=== PATIENT | female | born 1980 | race Caucasian/White ===

== ENCOUNTER → 2017-03-15 | Outpatient (REF) | payer OTHER ==
[2017-03-15 15:49] LABS: CONTROL LINE UCG INT CTR LINE PRESENT
== END ==
LOC: M LAB REF 15:39
PROVIDERS: ATTEND Physician Assistant
DX: N76.0 Acute vaginitis (principal)

== ENCOUNTER → 2017-05-12 | Outpatient (REF) | payer OTHER ==
[2017-05-12 18:31] LABS: ANION GAP 7 MEQ/L (8-16); BLOOD UREA NITROGEN 8 MG/DL (7-18); CALCIUM LEVEL 9.2 MG/DL (8.5-10.1); CARBON DIOXIDE LEVEL 28 MEQ/L (21-32); CHLORIDE LEVEL 105 MEQ/L (98-107); CREATININE FOR GFR 0.87 MG/DL (0.55-1.02); GLOMERULAR FILTRATION RATE > 60.0 (>60); GLUCOSE, FASTING 98 MG/DL (70-105); SODIUM LEVEL 140 MEQ/L (136-145)
== END ==
LOC: M LAB REF 16:52
PROVIDERS: ATTEND Physician Assistant Medical
DX: N18.9 Chronic kidney disease, unspecified (principal)

== ENCOUNTER → 2017-06-01 | Outpatient (REF) | payer OTHER ==
[2017-06-01 17:05] LABS: ANION GAP 6 MEQ/L (8-16); BLOOD UREA NITROGEN 9 MG/DL (7-18); CALCIUM LEVEL 9.1 MG/DL (8.5-10.1); CARBON DIOXIDE LEVEL 29 MEQ/L (21-32); CHLORIDE LEVEL 103 MEQ/L (98-107); CREATININE FOR GFR 0.66 MG/DL (0.55-1.02); GLOMERULAR FILTRATION RATE > 60.0 (>60); GLUCOSE, FASTING 94 MG/DL (70-105); POTASSIUM SERUM 4.9 MEQ/L (3.5-5.1); SODIUM LEVEL 138 MEQ/L (136-145)
== END ==
LOC: M LAB REF 16:50
PROVIDERS: ATTEND Physician Assistant Medical
DX: R10.9 Unspecified abdominal pain (principal)

== ENCOUNTER → 2017-06-16 | Outpatient (REF) | payer OTHER ==
[2017-06-16 12:50] LABS: APPEARANCE, URINE CLEAR (CLEAR); BACTERIA, URINE AUTO NEGATIVE (NEGATIVE); BILIRUBIN, URINE AUTO NEGATIVE (NEGATIVE); BLOOD, URINE BLOOD NEGATIVE (NEGATIVE); COLOR, URINE YELLOW (YELLOW); GLUCOSE, URINE (UA) AUTO NEGATIVE (NEGATIVE); KETONE, URINE AUTO NEGATIVE (NEGATIVE); LEUKOCYTE ESTERASE, URINE AUTO TRACE (NEGATIVE); MUCUS, URINE SMALL (NEGATIVE); NITRITE, URINE AUTO NEGATIVE (NEGATIVE); PROTEIN, URINE AUTO NEGATIVE (NEGATIVE); RBC, URINE AUTO 1 /HPF (0-3); SQUAMOUS EPITHELIAL CELL UR AU 2 /HPF (0-6); WBC, URINE AUTO 1 /HPF (0-3)
[2017-06-16 14:15] LABS: CHLAMYDIA DNA AMPLIFICATION NEGATIVE (NEGATIVE); GC DNA AMPLIFICATION NEGATIVE (NEGATIVE)
== END ==
LOC: M LAB REF 12:05
DX: R30.0 Dysuria (principal); R10.9 Unspecified abdominal pain

== ENCOUNTER → 2017-07-05 | Outpatient (REF) | payer OTHER | LOC: M LAB REF 15:17 | DX: J11.1 Influenza due to unidentified influenza virus with other respiratory manifestations (principal) ==

== ENCOUNTER → 2017-10-04 | Outpatient (REF) | payer OTHER ==
[2017-10-04 20:27] LABS: BASO # 0.1 10^3/uL (0.0-0.2); BASO % 0.6 % (0.0-1.0); EOS # 0.2 10^3/uL (0.0-0.50); EOS % 1.8 % (0.0-3.0); HEMATOCRIT 45.4 % (36.0-47.0); HEMOGLOBIN 15.3 g/dl (12.0-15.5); IMMATURE GRANULOCYTE % 0.3 % (0-3.0); LYMPH # 2.7 10^3/uL (1.5-4.5); LYMPH % 27.4 % (24.0-44.0); MEAN CORPUSCULAR HEMOGLOBIN 33.8 pg (27.0-33.0); MEAN CORPUSCULAR HGB CONC 33.7 g/dl (32.0-36.5); MEAN CORPUSCULAR VOLUME 100.4 fl (80.0-96.0); MONO # 0.7 10^3/uL (0.0-0.8); MONO % 6.7 % (0.0-5.0); NEUTROPHILS # 6.3 10^3/uL (1.8-7.7); NEUTROPHILS % 63.2 % (36.0-66.0); PLATELET COUNT, AUTOMATED 373 10^3/uL (150-450); RED BLOOD COUNT 4.52 10^6/uL (4.00-5.40); RED CELL DISTRIBUTION WIDTH 14.1 % (11.5-14.5); WHITE BLOOD COUNT 9.9 10^3/uL (4.0-10.0)
[2017-10-04 20:54] LABS: ALBUMIN 3.7 GM/DL (3.2-5.2); ALBUMIN/GLOBULIN RATIO 1.09 (1.00-1.93); ALKALINE PHOSPHATASE 121 U/L (45-117); ALT/SGPT 25 U/L (12-78); ANION GAP 6 MEQ/L (8-16); AST/SGOT 20 U/L (7-37); BILIRUBIN,TOTAL 0.4 MG/DL (0.2-1.0); BLOOD UREA NITROGEN 8 MG/DL (7-18); CALCIUM LEVEL 9.4 MG/DL (8.5-10.1); CARBON DIOXIDE LEVEL 28 MEQ/L (21-32); CHLORIDE LEVEL 106 MEQ/L (98-107); GLOMERULAR FILTRATION RATE > 60.0 (>60); GLUCOSE, FASTING 86 MG/DL (70-100); POTASSIUM SERUM 4.9 MEQ/L (3.5-5.1); SODIUM LEVEL 140 MEQ/L (136-145); TOTAL PROTEIN 7.1 GM/DL (6.4-8.2)
== END ==
LOC: M SFHCLERA 16:54
DX: M54.5 Low back pain (principal); Z87.448 Personal history of other diseases of urinary system

== ENCOUNTER → 2018-03-01 | Outpatient (REF) | payer OTHER | LOC: M SFHCLERA 10:02 | DX: R50.9 Fever, unspecified (principal) ==

== ENCOUNTER → 2018-04-20 | Outpatient (REF) | payer OTHER | LOC: M SFHCLERA 14:35 | DX: J02.9 Acute pharyngitis, unspecified (principal) ==

== ENCOUNTER → 2018-08-23 | Outpatient (REF) | payer OTHER ==
[2018-08-23 16:40] LABS: INFLUENZA A AMPLIFICATION NEGATIVE (NEGATIVE); INFLUENZA B AMPLIFICATION NEGATIVE (NEGATIVE)
== END ==
LOC: M LAB REF 15:45
PROVIDERS: ATTEND Physician Assistant Medical
DX: J11.1 Influenza due to unidentified influenza virus with other respiratory manifestations (principal)

== ENCOUNTER 2019-06-19 16:19 | Inpatient (IN) | payer MEDICAID, OTHER ==
[~2019-06-19] VITALS: Ht 167.6 cm; Wt 72.9 kg
[2019-06-19 17:47] LABS: HEMATOCRIT 48.4 % (36.0-47.0); HEMOGLOBIN 15.9 g/dl (12.0-15.5); MEAN CORPUSCULAR HEMOGLOBIN 32.1 pg (27.0-33.0); MEAN CORPUSCULAR HGB CONC 32.9 g/dl (32.0-36.5); MEAN CORPUSCULAR VOLUME 97.8 fl (80.0-96.0); PLATELET COUNT, AUTOMATED 324 10^3/uL (150-450); RED BLOOD COUNT 4.95 10^6/uL (4.00-5.40); WHITE BLOOD COUNT 7.6 10^3/uL (4.0-10.0)
[2019-06-19 18:16] LABS: ACETAMINOPHEN LEVEL < 2.0 UG/ML (10.0-30.0); ALBUMIN 3.6 GM/DL (3.2-5.2); ALT/SGPT 20 U/L (12-78); BILIRUBIN,DIRECT < 0.1 MG/DL (0.0-0.2); BILIRUBIN,TOTAL 0.1 MG/DL (0.2-1.0); BLOOD UREA NITROGEN 5 MG/DL (7-18); CALCIUM LEVEL 9.2 MG/DL (8.5-10.1); CARBON DIOXIDE LEVEL 29 MEQ/L (21-32); CHLORIDE LEVEL 109 MEQ/L (98-107); CREATININE FOR GFR 0.62 MG/DL (0.55-1.30); ETHYL ALCOHOL (ETHANOL) 0.125 % (0.000-0.010); GLOMERULAR FILTRATION RATE > 60.0 (>60); GLUCOSE, FASTING 87 MG/DL (70-100); POTASSIUM SERUM 4.3 MEQ/L (3.5-5.1); SALICYLATE LEVEL 2.4 MG/DL (5.0-30.0); SODIUM LEVEL 144 MEQ/L (136-145)
[2019-06-19 18:21] LABS: AMPHETAMINES LEVEL URINE NEGATIVE (NEGATIVE); BARBITURATES URINE POSITIVE (NEGATIVE); BENZODIAZEPINES URINE NEGATIVE (NEGATIVE); CANNABINOIDS URINE NEGATIVE (NEGATIVE); COCAINE METABOLITE URINE POSITIVE (NEGATIVE); METHADONE URINE NEGATIVE (NEGATIVE); OPIATES URINE NEGATIVE (NEGATIVE); PHENCYCLIDINE URINE NEGATIVE (NEGATIVE)
[2019-06-19] MEDS ORDERED: ACETAMINOPHEN TAB 650MG DOSE (2X325MG) PO ONE (19:45)
[2019-06-19 21:41] LABS: HCG, SERUM QUALITATIVE NEGATIVE (NEGATIVE)
[2019-06-20] MEDS ORDERED: ACETAMINOPHEN TAB 650MG DOSE (2X325MG) PO ONE ×2 (06:30→13:30)
[2019-06-20] MEDS ORDERED: NICOTINE 21MG/24HR 1 EA TRANSDERMAL TD ONE (06:45)
--- NOTE | 2019-06-20 08:06 | ECGEPIP ---
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
[2019-06-20] MEDS ORDERED: MAALOX 30 ML SUSP *UDC PO PRN (17:45)
[2019-06-20] MEDS ORDERED: MOM 30ML SUSPENSION UDC PO PRN (17:45)
[2019-06-20] MEDS ORDERED: LORazepam 2 MG TAB PO PRN (17:45)
[2019-06-20 18:23] VITALS: BP 144/86
[2019-06-20] MEDS: THIAMINE 100 MG TAB PO SCH (19:33)
[2019-06-20] MEDS: traZODone 50 MG TAB PO PRN (20:34)
[2019-06-20] MEDS: ACETAMINOPHEN TAB 650MG DOSE (2X325MG) PO PRN (20:35)
[2019-06-21 02:09] VITALS: BP 135/79
[2019-06-21] MEDS ORDERED: ONDANSETRON 4 MG TAB (S0181) PO ONE (02:30)
[2019-06-21] MEDS: ACETAMINOPHEN TAB 650MG DOSE (2X325MG) PO PRN ×2 (02:38→10:09)
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
[2019-06-21] MEDS ORDERED: IBUPROFEN 800 MG TAB PO ONE (04:00)
[2019-06-21 08:00] VITALS: BP 135/79
[2019-06-21] MEDS: MULTIVITAMINS/MINERALS THERAP 1 TAB PO SCH (09:20)
[2019-06-21] MEDS: THIAMINE 100 MG TAB PO SCH ×2 (09:20→21:32)
[2019-06-21] MEDS: FOLIC ACID 1 MG TAB PO SCH (09:20)
[2019-06-21] MEDS: NICOTINE 21MG/24HR 1 EA TRANSDERMAL TD SCH (10:05)
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
[2019-06-21] MEDS: IBUPROFEN 400 MG TAB PO PRN (13:55)
[2019-06-21 15:42] VITALS: BP 115/75
--- NOTE | 2019-06-21 16:54 | REP ---
INDICATION: Recurrent headaches PROCEDURE: CT head without contrast COMPARISON STUDIES: No prior FINDINGS: No acute bleed or acute large vessel territorial infarct. Ventricles, cisterns and sulci within normal limits. No mass effect or midline shift. No abnormal fluid collections. Paranasal sinuses and mastoid air cells are clear. CONCLUSION: No acute findings. Normal examination. Electronically Signed by Angel Curtis MD 06/21/2019 04:46 P
[2019-06-21] MEDS ORDERED: SERTRALINE HCL 25 MG TABLET PO ONE (17:15)
[2019-06-21 17:20] VITALS: BP 115/75
[2019-06-21] MEDS ORDERED: BACITRACIN OINT 30GM TOP PRN (18:00)
[2019-06-21] MEDS: FIORICET TAB PO PRN (21:33)
[2019-06-21] MEDS: traZODone 50 MG TAB PO PRN (22:47)
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
[2019-06-22 07:55] VITALS: BP 97/59
[2019-06-22] MEDS: NICOTINE 21MG/24HR 1 EA TRANSDERMAL TD SCH (08:55)
[2019-06-22] MEDS: THIAMINE 100 MG TAB PO SCH ×2 (08:55→21:27)
[2019-06-22] MEDS: SERTRALINE HCL 25 MG TABLET PO SCH (08:55)
[2019-06-22] MEDS: MULTIVITAMINS/MINERALS THERAP 1 TAB PO SCH (08:55)
[2019-06-22] MEDS: FOLIC ACID 1 MG TAB PO SCH (08:55)
[2019-06-22] MEDS: FIORICET TAB PO PRN ×3 (09:00→21:28)
--- NOTE | 2019-06-22 10:19 | IPNPDOC ---
Subjective Date Seen The patient was seen on 06/22/19. Subjective Chief Complaint/HPI Patient examined at home with Augmentin at bedside. Headache is much better. He denies any new complaints General: Denies: ROS Unobtainable, Chills, Night Sweats, Fatigue, Malaise, Normal Appetite, Other Symptoms Constitutional: Denies: Chills, Fever, Malaise, Night Sweats, Weakness, Fatigue, Weight Loss, Lethargy, Other Pulmonary: Denies: Dyspnea, Cough, Pleuritic Chest Pain, Other Symptoms Cardiovascular: Denies: Chest Pain, Palpitations, Orthopnea, Paroxysmal Noc. Dyspnea, Edema, Lt Headedness, Other Symptoms Gastrointestinal: Denies: Nausea, Vomiting, Abdominal Pain, Diarrhea, Constipation, Melena, Hematochezia, Other Symptoms Genitourinary: Denies: Dysuria, Frequency, Incontinence, Hematuria, Retention, Other Symptoms Musculoskeletal: Denies: Neck Pain, Back Pain, Shoulder Pain, Arm Pain, Hand Pain, Leg Pain, Foot Pain, Joint Pain, Muscle Pain, Spasms, Other Symptoms Neurological: Denies: Weakness, Numbness, Incoordination, Change in speech, Confusion, Seizures, Other Symptoms Psych: Denies: Mood Normal, Anxiety, Depression, Memory Issues, Thoughts of Self Harm, Anger, Thoughts of Harming Other, Other Psych Objective Physical Examination General Exam: Positive: Alert, Cooperative Eye Exam: Positive: PERRLA, Conjunctiva & lids normal ENT Exam: Positive: Atraumatic Neck Exam: Positive: Supple Chest Exam: Positive: Clear to auscultation, Normal air movement Heart Exam: Positive: Rate Normal, Normal S1, Normal S2 Abdomen Exam: Positive: Soft Extremity Exam: Positive: Normal pulses Skin Exam: Positive: Nl turgor and temperature Assessment /Plan Problems (1) Headache Status: Acute Problem Text: CT of the head essentially negative Headache, most likely secondary to polysubstance abuse and withdrawal Continue Fioricet when necessary for headache For further intervention at this time (2) Polysubstance abuse Status: Acute Problem Text: Counseling as per psychiatry (3) Depression with suicidal ideation Status: Acute Problem Text: Further management as per psychiatry Plan/VTE VTE Prophylaxis Ordered?: No VS, I&O, 24H, Fishbone Vital Signs/I&O Vital Signs Date Time Temp Pulse Resp B/P (MAP) Pulse Ox O2 Delivery O2 Flow Rate FiO2 1/10/20 09:32 16 06/22/19 09:00 99 102/68 97 06/22/19 07:55 97.3 06/20/19 18:23 Room Air RIGO JAY MD Jun 22, 2019 10:19
[2019-06-22 15:48] VITALS: BP 113/69
[2019-06-22] MEDS: traZODone 50 MG TAB PO PRN (21:27)
[2019-06-23 06:29] VITALS: BP 110/68
[2019-06-23] MEDS: SERTRALINE HCL 25 MG TABLET PO SCH (08:12)
[2019-06-23] MEDS: FOLIC ACID 1 MG TAB PO SCH (08:12)
[2019-06-23] MEDS: THIAMINE 100 MG TAB PO SCH (08:12)
[2019-06-23] MEDS: NICOTINE 21MG/24HR 1 EA TRANSDERMAL TD SCH (08:12)
[2019-06-23] MEDS: MULTIVITAMINS/MINERALS THERAP 1 TAB PO SCH (08:12)
[2019-06-23] MEDS: FIORICET TAB PO PRN ×3 (08:16→21:34)
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
[2019-06-23 10:00] VITALS: BP 110/68
[2019-06-23] MEDS ORDERED: SERTRALINE HCL 25 MG TABLET PO ONE (10:00)
[2019-06-23 16:38] VITALS: BP 106/71
[2019-06-23] MEDS: traZODone 50 MG TAB PO PRN (21:34)
[2019-06-24 06:38] VITALS: BP 109/51
[2019-06-24] MEDS: SERTRALINE HCL 50 MG TAB PO SCH (08:49)
[2019-06-24] MEDS: FOLIC ACID 1 MG TAB PO SCH (08:49)
[2019-06-24] MEDS: MULTIVITAMINS/MINERALS THERAP 1 TAB PO SCH (08:49)
[2019-06-24] MEDS: NICOTINE 21MG/24HR 1 EA TRANSDERMAL TD SCH (08:49)
[2019-06-24] MEDS: IBUPROFEN 400 MG TAB PO PRN (08:50)
[2019-06-24 10:00] VITALS: BP 109/51
[2019-06-24] MEDS: FIORICET TAB PO PRN ×2 (16:04→22:07)
[2019-06-24 16:16] VITALS: BP 130/68
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
[2019-06-24] MEDS: hydrOXYzine 50 MG TAB PO PRN ×2 (18:22→22:07)
[2019-06-24 21:01] VITALS: BP 130/68
[2019-06-24] MEDS: traZODone 50 MG TAB PO PRN (22:07)
[2019-06-25 06:38] VITALS: BP 120/60
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
[2019-06-25] MEDS: FIORICET TAB PO PRN ×2 (09:38→18:48)
[2019-06-25] MEDS: SERTRALINE HCL 50 MG TAB PO SCH (09:38)
[2019-06-25] MEDS: FOLIC ACID 1 MG TAB PO SCH (09:38)
[2019-06-25] MEDS: MULTIVITAMINS/MINERALS THERAP 1 TAB PO SCH (09:38)
[2019-06-25] MEDS: NICOTINE 21MG/24HR 1 EA TRANSDERMAL TD SCH (09:39)
[2019-06-25] MEDS: hydrOXYzine 50 MG TAB PO PRN ×2 (09:41→22:40)
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
[2019-06-25] MEDS ORDERED: OXAZEPAM 10 MG CAP PO ONE (11:00)
[2019-06-25 16:57] VITALS: BP 117/78
[2019-06-25] MEDS: OXAZEPAM 10 MG CAP PO PRN (18:44)
[2019-06-25 21:27] VITALS: BP 117/78
[2019-06-25] MEDS: traZODone 50 MG TAB PO PRN (22:36)
[2019-06-25] MEDS: IBUPROFEN 400 MG TAB PO PRN (22:40)
[2019-06-26 06:56] VITALS: BP 90/51
[2019-06-26 06:57] VITALS: BP 90/51
[2019-06-26] MEDS: hydrOXYzine 50 MG TAB PO PRN ×2 (08:39→20:45)
[2019-06-26] MEDS: FOLIC ACID 1 MG TAB PO SCH (08:39)
[2019-06-26] MEDS: MULTIVITAMINS/MINERALS THERAP 1 TAB PO SCH (08:39)
[2019-06-26] MEDS: FIORICET TAB PO PRN ×2 (08:39→20:51)
[2019-06-26] MEDS: NICOTINE 21MG/24HR 1 EA TRANSDERMAL TD SCH (08:42)
[2019-06-26] MEDS ORDERED: SERTRALINE HCL 25 MG TABLET PO SCH (09:00)
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
[2019-06-26 11:50] VITALS: BP 135/85
[2019-06-26] MEDS: IBUPROFEN 400 MG TAB PO PRN ×2 (11:59→22:42)
[2019-06-26 15:43] VITALS: BP 109/63
[2019-06-26 15:44] VITALS: BP 109/63
[2019-06-26] MEDS: OXAZEPAM 10 MG CAP PO PRN (20:47)
[2019-06-26] MEDS: traZODone 50 MG TAB PO PRN (22:42)
[2019-06-27 06:35] VITALS: BP 96/53
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
[2019-06-27] MEDS ORDERED: SERTRALINE HCL 50 MG TAB PO SCH (09:00)
[2019-06-27] MEDS: hydrOXYzine 50 MG TAB PO PRN ×2 (09:24→13:42)
[2019-06-27] MEDS: NICOTINE 21MG/24HR 1 EA TRANSDERMAL TD SCH (09:24)
[2019-06-27] MEDS: OXAZEPAM 10 MG CAP PO PRN (09:24)
[2019-06-27] MEDS: FIORICET TAB PO PRN (09:25)
[2019-06-27] MEDS ORDERED: SERT50TA29 PO (09:46)
[2019-06-27] MEDS ORDERED: NICO21PAT TD (09:46)
[2019-06-27] MEDS: IBUPROFEN 400 MG TAB PO PRN (13:43)
[2019-06-27] MEDS ORDERED: SERT25TA85 PO (13:50)
[2019-06-27] MEDS ORDERED: HYDR50TA70 PO (13:50)
== END 2019-06-27 14:35 | disposition home or self-care (01) | DRG 754 ==
LOC: M ED 16:19 → M ED INP 06-20 17:31 → M PSY 06-20 18:19
PROVIDERS: ADMIT Psychiatry & Neurology Psychiatry; ATTEND Psychiatry & Neurology Addiction Medicine
DX: F32.9 Major depressive disorder, single episode, unspecified (principal); F43.9 Reaction to severe stress, unspecified; F60.7 Dependent personality disorder; G43.909 Migraine, unspecified, not intractable, without status migrainosus; F10.20 Alcohol dependence, uncomplicated; F17.200 Nicotine dependence, unspecified, uncomplicated; Z91.410 Personal history of adult physical and sexual abuse; Z91.411 Personal history of adult psychological abuse

== ENCOUNTER → 2019-06-21 | Outpatient (CLI) | payer MEDICAID | LOC: M RAD 16:24 | PROVIDERS: ATTEND Psychiatry & Neurology Addiction Medicine | DX: R51 Headache (principal) ==

== ENCOUNTER → 2019-07-02 | Outpatient (CLI) | payer MEDICAID ==
[~2019-07-02] MED LIST: HYDR50TA70 PO; NICO21PAT TD; SERT25TA85 PO; SERT50TA29 PO
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
== END ==
LOC: M RAD 10:07
PROVIDERS: ATTEND Physician Assistant
DX: R51 Headache (principal)

== ENCOUNTER → 2019-10-04 | Outpatient (CLI) | payer OTHER | LOC: M LABSMTC 12:17 | PROVIDERS: ATTEND Family Medicine | DX: Z11.59 Encounter for screening for other viral diseases (principal); Z20.828 Contact with and (suspected) exposure to other viral communicable diseases ==

== ENCOUNTER → 2020-01-17 | Outpatient (REF) | payer OTHER | LOC: M LAB REF 15:22 | PROVIDERS: ATTEND Nurse Practitioner Family | DX: B00.1 Herpesviral vesicular dermatitis (principal) ==

== ENCOUNTER 2022-02-24 12:13 | Emergency (ER) | payer OTHER ==
[~2022-02-24] VITALS: Ht 167.6 cm; Wt 73.4 kg
[2022-02-24] MEDS ORDERED: IBUP200C25 PO (12:32)
[2022-02-24] MEDS ORDERED: NS 1,000 ML IV ONE (15:15)
[2022-02-24 15:53] LABS: BASO # 0.1 10^3/uL (0.0-0.2); BASO % 0.4 % (0.0-1.0); EOS # 0.3 10^3/uL (0.0-0.5); EOS % 2.6 % (0.0-3.0); HEMATOCRIT 27.6 % (36.0-47.0); HEMOGLOBIN 7.8 g/dl (12.0-15.5); LYMPH # 2.2 10^3/uL (1.5-5.0); LYMPH % 18.7 % (24.0-44.0); MEAN CORPUSCULAR HEMOGLOBIN 19.5 pg (27.0-33.0); MEAN CORPUSCULAR HGB CONC 28.3 g/dl (32.0-36.5); MEAN CORPUSCULAR VOLUME 69.2 fl (80.0-96.0); MONO # 0.9 10^3/uL (0.0-0.8); NEUTROPHILS # 8.1 10^3/uL (1.5-8.5); NEUTROPHILS % 69.9 % (36.0-66.0); PLATELET COUNT, AUTOMATED 396 10^3/uL (150-450); RED BLOOD COUNT 3.99 10^6/uL (4.00-5.40); WHITE BLOOD COUNT 11.6 10^3/uL (4.0-10.0)
[2022-02-24 16:17] LABS: ERYTHROCYTE SEDIMENTATION RATE 25 mm/hr (0-20)
[2022-02-24 16:51] LABS: ALBUMIN 3.3 GM/DL (3.2-5.2); ALT/SGPT 112 U/L (12-78); BILIRUBIN,DIRECT 0.1 MG/DL (0.0-0.2); BILIRUBIN,TOTAL 0.3 MG/DL (0.2-1.0); BLOOD UREA NITROGEN 14 MG/DL (7-18); C REACTIVE PROTEIN QUANTITATIV 0.89 MG/DL (0.00-0.30); CALCIUM LEVEL 8.9 MG/DL (8.5-10.1); CARBON DIOXIDE LEVEL 21 MEQ/L (21-32); CHLORIDE LEVEL 104 MEQ/L (98-107); CREATININE FOR GFR 0.52 MG/DL (0.55-1.30); GLOMERULAR FILTRATION RATE > 60.0 (>58); GLUCOSE, FASTING 91 MG/DL (70-100); HCG, SERUM QUANTITATIVE 95034 MIU/ML; LIPASE 144 U/L (73-393); SODIUM LEVEL 134 MEQ/L (136-145); TOTAL PROTEIN 7.1 GM/DL (6.4-8.2)
[2022-02-24 16:53] LABS: GC DNA AMPLIFICATION NEGATIVE (NEGATIVE)
[2022-02-24] MEDS ORDERED: metroNIDAZOLE (FLAGYL) 500MG TABLET PO ONE (17:30)
[2022-02-24 17:38] LABS: AMPHETAMINES LEVEL URINE NEGATIVE (NEGATIVE); BARBITURATES URINE NEGATIVE (NEGATIVE); BENZODIAZEPINES URINE NEGATIVE (NEGATIVE); CANNABINOIDS URINE NEGATIVE (NEGATIVE); COCAINE METABOLITE URINE NEGATIVE (NEGATIVE); METHADONE URINE NEGATIVE (NEGATIVE); OPIATES URINE NEGATIVE (NEGATIVE); PHENCYCLIDINE URINE NEGATIVE (NEGATIVE)
[2022-02-24 17:47] LABS: CK-MB VALUE MASS < 1.0 NG/ML (<3.6); CPK CREATINE PHOSPHOKINASE 55 U/L (26-192); MB/CK RELATIVE INDEX 1.82 (< OR =4)
[2022-02-24 17:53] LABS: NT-PRO BNP 51 PG/ML (<125)
[2022-02-24] MEDS ORDERED: METR-265 PO ×2 (18:15→18:35)
[2022-02-24 18:41] VITALS: BP 135/75
== END 2022-02-24 18:43 | disposition left against medical advice (07) ==
LOC: M ED 12:13
DX: O99.611 Diseases of the digestive system complicating pregnancy, first trimester (principal); R10.9 Unspecified abdominal pain; Z3A.01 Less than 8 weeks gestation of pregnancy; Z53.29 Procedure and treatment not carried out because of patient's decision for other reasons